=== PATIENT | female | born 1965 | race Caucasian/White ===

== ENCOUNTER 2016-08-31 08:05 | Day surgery (SDC) | payer BC ==
[~2016-08-31 08:05] MED LIST: ACETAMINOPHEN 1000MG/100 ML PREMIX IV ONE; FAMOTIDINE 20MG TABLET PO ONE; MECLIZINE 25 MG TABLET PO ONE; METOCLOPRAMIDE 10 MG TABLET PO ONE
[2016-08-31 08:58] LABS: ANION GAP 11.8 (7-16); BLOOD UREA NITROGEN 16 mg/dL (7-17); CARBON DIOXIDE 25.2 mmol/L (22-30); CREATININE 0.7 mg/dL (0.52-1.04); EST GLOMERULAR FILTRATION RATE > 60 ml/min; GLUCOSE,RANDOM 122 mg/dL (70-110)
[2016-08-31] MEDS ORDERED: MIDAZOLAM HCL 2MG/2ML VIAL IV ONE (12:58)
[2016-08-31] MEDS ORDERED: PROPOFOL 10 MG/ML VIAL IV ONE (12:58)
[2016-08-31] MEDS ORDERED: GLYCOPYRROLATE 0.2 MG/ML ML IV ONE (12:58)
[2016-08-31] MEDS ORDERED: ROCURONIUM BROMIDE 50MG/5ML VIAL IV ONE (12:58)
[2016-08-31] MEDS ORDERED: NEOSTIGMINE 1 MG/1 ML,10ML VIAL IV ONE (12:58)
[2016-08-31] MEDS ORDERED: ONDANSETRON HCL IV 4 MG/2 ML VIAL IVP ONE (12:58)
[2016-08-31] MEDS ORDERED: SUCCINYLCHOLINE 20 MG/ML 10ML IVP ONE (12:58)
[2016-08-31] MEDS ORDERED: DEXAMETHASONE 4 MG/ML 1ML VIAL IVP ONE (12:58)
[2016-08-31] MEDS ORDERED: FENTANYL PF 100MCG/2ML VIAL IV ONE (12:58)
[2016-08-31] MEDS ORDERED: DESFLURANE 240 ML BTL INH ONE (12:58)
[2016-08-31] MEDS ORDERED: LIDOCAINE 2% MDV (20MG/ML) 20ML VIAL IV ONE (12:58)
[2016-08-31] MEDS ORDERED: HYDROMORPHONE HCL 2 MG/ML VIAL IV ONE (15:11)
[2016-08-31] MEDS ORDERED: HYDROCODONE/APAP 5/325MG TABLET PO ONE (15:11)
[2016-08-31] MEDS ORDERED: BUPIVACAINE 0.25% W/EPI MPF 30ML VIAL IVP ONE (15:11)
--- NOTE | 2016-09-02 09:50 | Operative Note ---
DATE OF SURGERY: 08/31/2016 REFERRING: Teresa Munoz NP. PREOPERATIVE DIAGNOSIS: Cholelithiasis and chronic cholecystitis. POSTOPERATIVE DIAGNOSIS: Cholelithiasis and chronic cholecystitis. OPERATION: Lap cholecystectomy. Surgeon: Gus Taylor D.O. Indication: The patient is a 50-year-old female with ongoing right subcostal postprandial pain. Imaging studies did reveal cholelithiasis without evidence of acute cholecystitis. We did discuss cholecystectomy versus medical management. She desired surgical intervention. The risk includes bleeding, infection, duct injury, possible conversion to open, postoperative bile leak and she understood this fully. PROCEDURE: Therefore, after consent was signed and questions were answered she was taken to the Operating Room and placed in the supine position. General anesthesia was administered per Department of Anesthesia. The patient's abdomen was prepped and draped in the usual sterile fashion. Through her prior laparotomy, we did have to go in a supraumbilical position. This area was anesthetized with a total of 3 mL of 0.25% Sensorcaine with epinephrine. A 2 cm incision was made. This was carried down to the anterior rectus fascia. This was incised. Corry clamps were placed on the fascial edges and brought up into the wound. Stay sutures of 0 Vicryl placed. What we did incise was actually an incisional hernia from a prior port site. Clean circumferential fascial edges were obtained. We did lift up the stay sutures and then incised a hernia sac. This was then passed off the field. Through the hernia site, a 10 mm Riky port was placed and adequate pneumoperitoneum was established. Under direct visualization, an additional 5 mm epigastric and two 5 mm right subcostal ports were placed. The patient had dense omental adhesions all along the gallbladder. The patient also had diffuse fatty infiltration of the liver. The gallbladder was retracted in a cephalad and lateral direction where visualization was still somewhat limited. We did increase her reverse Trendelenburg but still could not see the triangle of Calot clearly. Therefore I did have to place a fifth port to hold on the transverse colon and this did optimize our visualization. The hepatocystic triangle was thoroughly dissected out. I did switch to a dome-down technique where the gallbladder was taken off in a retrograde fashion. This did our inferior dissection and looking left structural-tolbert where the cystic duct and cystic artery appeared. Each one was doubly clipped in a standard fashion. The gallbladder was then placed in an EndoCatch bag and brought out through the hernia site. The right upper quadrant was rechecked and was found to be hemostatic. No bleeding, no bile leaking, no bowel injury noted. Pneumoperitoneum was released. The hernia was repaired with #1 Vicryl in an interrupted fashion. All skin incisions were closed with 4-0 Vicryl. She was taken to the Recovery Room in satisfactory condition. FINDINGS AT TIME OF SURGERY: 1. Chronic cholecystitis. 2. Incarcerated incisional hernia. Gus Taylor DO CC: Teresa Munoz NP [email or web address]
== END 2016-08-31 13:15 | disposition home or self-care (01) ==
LOC: SUR 08:05
PROVIDERS: ATTEND Surgery
DX: K80.10 Calculus of gallbladder with chronic cholecystitis without obstruction (principal); K42.9 Umbilical hernia without obstruction or gangrene; I10 Essential (primary) hypertension; J44.9 Chronic obstructive pulmonary disease, unspecified
CPT/HCPCS: 47562; 49653; 00790; 80048; J2405; J3010; J1170; J0330; J2710

== ENCOUNTER 2017-08-08 17:26 | Emergency (ER) | payer BC ==
--- NOTE | 2017-08-08 17:48 | Emergency Department Record ---
History of Present Illness - General Chief Complaint: Cough Stated Complaint: JERRI/COPD/ASTHEMA Time Seen by Provider: 08/08/17 17:40 Source: Patient Mode of Arrival: Ambulatory Limitations: No limitations - History of Present Illness Initial Comments: The patient is here due to a cough, congestion, nasal drainage and mild sputum production for 3 days. She denies any Cp, SOB, or fever. The patient states she has a hx of COPD and gets ill fast and usually gets Cipro for this with a codeine cough medicine. MD Complaint: Cough, Nasal congestion, Rhinorrhea Onset/Timin -: Days(s) Consistency: Getting worse - Related Data Home Medications Medication Instructions Recorded Confirmed Last Taken Multivitamin [Multi-Vitamin Daily] 1 each PO DAILY 08/08/17 08/08/17 08/08/17 Previous Rx's Medication Instructions Recorded Benzonatate [Tessalon Perle] 100 mg PO TID #15 capsule 08/08/17 Ciprofloxacin HCl [Cipro] 500 mg PO Q12HR #14 tablet 08/08/17 Allergies Allergy/AdvReac Type Severity Reaction Status Date / Time dextromethorphan HBr Allergy Severe SWELLING Verified 08/08/17 17:31 [From NyQuil] OF THE FACE diphenhydramine HCl Allergy Severe ANAPHYLAXIS Verified 08/08/17 17:31 [From Tylenol PM] doxycycline Allergy Severe DIFFICULTY Verified 08/08/17 17:31 BREATHING doxylamine succinate Allergy Severe SWELLING Verified 08/08/17 17:31 [From NyQuil] OF THE FACE pseudoephedrine HCl Allergy Severe SWELLING Verified 08/08/17 17:31 [From DayQuil Sinus OF THE FACE Pressure/Pain] amoxicillin Allergy Intermediate RASH Verified 08/08/17 17:31 prednisone Allergy Intermediate ITCHING Verified 08/08/17 17:31 trimethoprim [From Bactrim] Allergy Intermediate "worse Verified 08/08/17 17:31 infection-doesn't help" cephalexin monohydrate Allergy Mild ITCHING Verified 08/08/17 17:31 [From Keflex] lisinopril Allergy ITCHING Verified 08/08/17 17:31 apple AdvReac Severe SWELLING Unverified 07/27/17 08:56 (GENERAL) vinegar AdvReac Severe SWELLING Uncoded 08/24/16 15:57 (GENERAL) Travel Screening - Travel/Exposure Within Last 30 Days Have you traveled within the last 30 days?: No - Travel/Exposure Within Last Year Have you traveled outside the [place] in the last year?: No - Additonal Travel Details Have you been exposed to anyone with a communicable illness?: No - Travel Symptoms Symptom Screening: None Review of Systems Constitutional: Reports: Malaise. Denies: Chills, Fever Eyes: Denies: Eye discharge ENT: Reports: Congestion Respiratory: Reports: Cough. Denies: Dyspnea Past Medical History - SOCIAL HISTORY Smoking Status: Never smoker Alcohol Use: Occasional Drug Use: None - RESPIRATORY Hx Respiratory Disorders: Yes Hx Asthma: Yes Hx Bronchitis: Yes (04/2016) Hx COPD: Yes - CARDIOVASCULAR Hx Cardio Disorders: Yes Hx Hypertension: Yes (med good control) - NEURO Hx Neuro Disorders: No - GI Hx GI Disorders: Yes Hx Abdominal Pain: Yes (rt abd mainly) Hx Reflux: Yes (heartburn & reflux) Hx Nausea/Vomiting: Yes (no vomiting) - Hx Genitourinary Disorders: No Comment:: hysterectomy - ENDOCRINE Hx Endocrine Disorders: No - MUSCULOSKELETAL Hx Musculoskeletal Disorders: No - PSYCH Hx Psych Problems: No - HEMATOLOGY/ONCOLOGY Hx Hematology/Oncology Disorders: Yes Hx Anemia: Yes (before hysterectomy) Hx Blood Transfusions: Yes (1986) Hx Blood Transfusion Reaction: No Family Medical History Any Significant Family History?: Yes Hx Diabetes: Mother *Diabetes Comment: non insulin Hx Heart Disease: Father Hx HTN: Father Hx Stroke: Father Physical Exam - General General Appearance: Alert, Oriented x3, Cooperative, No acute distress - Head Head exam: Atraumatic, Normocephalic, Normal inspection - Eye Eye exam: Normal appearance, PERRL - ENT ENT exam: Normal exam, Mucous membranes moist, Normal external ear exam, Normal orophraynx, TM's normal bilaterally Throat exam: Normal inspection. negative: Tonsillar erythema, Tonsillar exudate - Neck Neck exam: Normal inspection, Full ROM. negative: Lymphadenopathy, Meningismus , Tenderness - Respiratory Respiratory exam: Normal lung sounds bilaterally. negative: Respiratory distress - Cardiovascular Cardiovascular Exam: Regular rate, Normal rhythm, Normal heart sounds - GI/Abdominal GI/Abdominal exam: Soft, Normal bowel sounds. negative: Tenderness - Extremities Extremities exam: Normal inspection, Full ROM, Normal capillary refill. negative: Tenderness - Neurological Neurological exam: Alert. negative: Motor sensory deficit Course Vital Signs 08/08/17 17:33 Temperature 98.3 F Pulse Rate 97 H Respiratory 20 Rate Blood Pressure 132/85 Pulse Ox 97 - Reevaluation(s) Reevaluation #1: I did discuss the issues with the patient. I did explain to her that Cipro is really not indicated for respiratory infections but since the patient states she is unable to take anything else I will reluctantly prescribe her it. I also did tell her that I do not prescribe cough medicine with codeine so we will try the patient on Tessalon. She is to see her PCP later this week if not better. 08/08/17 17:49 Disposition Disposition: Discharge Clinical Impression: Upper respiratory infection Qualifiers: URI type: unspecified URI Qualified Code(s): J06.9 - Acute upper respiratory infection, unspecified Disposition: Home, Self-Care Condition: (2) Stable Instructions: Cold Symptoms (ED) Additional Instructions: Please take the medicines as directed. Please see your family doctor in 3-5 days if not better. Return to the ER for any worsening symptoms. Prescriptions: Ciprofloxacin HCl [Cipro] 500 mg PO Q12HR #14 tablet Benzonatate [Tessalon Perle] 100 mg PO TID #15 capsule Forms: Patient Portal Access Time of Disposition: 17:52 Quality - Quality Measures Quality Measures: N/A - Blood Pressure Screening View Details: Yes Does Patient Have Any of the Following: No Blood Pressure Classification: Pre-Hypertensive BP Reading Systolic Measurement: 132 Diastolic Measurement: 85 Screening for High Blood Pressure: < Pre-Hypertensive BP, F/U Documented > [ G8950] Pre-Hypertensive Follow-up Interventions: Referral to alternative/primary care provider.
== END 2017-08-08 18:00 | disposition home or self-care (01) ==
LOC: ER 17:26
DX: J06.9 Acute upper respiratory infection, unspecified (principal); R05 Cough; I10 Essential (primary) hypertension
CPT/HCPCS: 99282

== ENCOUNTER 2018-03-11 22:56 | Emergency (ER) | payer BC ==
[2018-03-11] MEDS ORDERED: Diph,Pert(Acell),Tet Vac 0.5 ML SYR IM ONE (23:08)
[2018-03-11] MEDS ORDERED: ACETAMINOPHEN 325 MG TAB PO ONE (23:08)
--- NOTE | 2018-03-11 23:12 | Emergency Department Record ---
History of Present Illness - General Chief Complaint: Ankle/Foot Injury Stated Complaint: RT FOOT INJURY Time Seen by Provider: 03/11/18 23:06 Source: Patient Mode of Arrival: Ambulatory Limitations: No limitations - History of Present Illness Initial Comments: The patient is here due to accidentally dropping a tire iron on her R foot. She did sustain a very small PW to the dorsal foot over the mid 4th MT bone with tenderness. Complaint: Foot injury Onset/Timin -: Minutes(s) Type of Injury: Puncture wound Severity scale (1-10): 7 Treatments Prior to Arrival: Bandage - Related Data Previous Rx's Medication Instructions Recorded Ciprofloxacin HCl [Cipro] 500 mg PO Q12HR #10 tablet 03/11/18 Allergies Allergy/AdvReac Type Severity Reaction Status Date / Time dextromethorphan HBr Allergy Severe SWELLING Verified 03/11/18 23:01 [From NyQuil] OF THE FACE diphenhydramine HCl Allergy Severe ANAPHYLAXIS Verified 03/11/18 23:01 [From Tylenol PM] doxycycline Allergy Severe DIFFICULTY Verified 03/11/18 23:01 BREATHING doxylamine succinate Allergy Severe SWELLING Verified 03/11/18 23:01 [From NyQuil] OF THE FACE pseudoephedrine HCl Allergy Severe SWELLING Verified 03/11/18 23:01 [From DayQuil Sinus OF THE FACE Pressure/Pain] amoxicillin Allergy Intermediate RASH Verified 03/11/18 23:01 prednisone Allergy Intermediate ITCHING Verified 03/11/18 23:01 trimethoprim [From Bactrim] Allergy Intermediate "worse Verified 03/11/18 23:01 infection-doesn't help" cephalexin monohydrate Allergy Mild ITCHING Verified 03/11/18 23:01 [From Keflex] lisinopril Allergy ITCHING Verified 03/11/18 23:01 apple AdvReac Severe SWELLING Verified 03/11/18 23:01 (GENERAL) clindamycin AdvReac NAUSEA Verified 03/11/18 23:24 vinegar AdvReac Severe SWELLING Uncoded 08/24/16 15:57 (GENERAL) Travel Screening - Travel/Exposure Within Last 30 Days Have you traveled within the last 30 days?: No - Travel Symptoms Symptom Screening: None Review of Systems Constitutional: Denies: Chills, Fever Past Medical History - SOCIAL HISTORY Smoking Status: Never smoker - RESPIRATORY Hx Respiratory Disorders: Yes Hx Asthma: Yes Hx Bronchitis: Yes (04/2016) Hx COPD: Yes - CARDIOVASCULAR Hx Cardio Disorders: Yes Hx Hypertension: Yes (med good control) Comment:: high cholesterol - NEURO Hx Neuro Disorders: No - GI Hx GI Disorders: Yes Hx Abdominal Pain: Yes (rt abd mainly) Hx Reflux: Yes (heartburn & reflux) Hx Nausea/Vomiting: Yes (no vomiting) - Hx Genitourinary Disorders: No Comment:: hysterectomy - ENDOCRINE Hx Endocrine Disorders: Yes Hx Diabetes: Yes - MUSCULOSKELETAL Hx Musculoskeletal Disorders: No - PSYCH Hx Psych Problems: No - HEMATOLOGY/ONCOLOGY Hx Hematology/Oncology Disorders: Yes Hx Anemia: Yes (before hysterectomy) Hx Blood Transfusions: Yes (1986) Hx Blood Transfusion Reaction: No Family Medical History Any Significant Family History?: Yes Hx Diabetes: Mother *Diabetes Comment: non insulin Hx Heart Disease: Father Hx HTN: Father Hx Stroke: Father Physical Exam - General General Appearance: Alert, Cooperative, No acute distress - Head Head exam: Atraumatic, Normocephalic - Eye Eye exam: Normal appearance - Extremities Extremities exam: Full ROM, Tenderness (There is tenderness at the site of the trauma.). negative: Normal inspection (There is a very small PW to the dorsal foot over the mid 4th MT bone at the site of the trauma. ) Image of Feet: 1 - Area of trauma, a superficial PW and tenderness. Course Vital Signs 03/11/18 23:02 Temperature 97.7 F Pulse Rate [ 83 Pulse Ox Probe] Respiratory 20 Rate Blood Pressure 148/78 [Left Arm] Pulse Ox 97 - Reevaluation(s) Reevaluation #1: The patient is doing very well. I did explain the xray does not demonstrate any fx. She is to keep the PW clean and dressed with abx ointment and a bandaid. She also is to take Cipro as directed. 03/11/18 23:41 Medical Decision Making - Data Complexity MDM Data: X-Ray Ordered and/or Reviewed - Radiology Data Radiology results: Report reviewed (R foot: Neg for fx.) Disposition Disposition: Discharge Clinical Impression: Contusion of foot Qualifiers: Encounter type: initial encounter Laterality: right Qualified Code(s): S90.31XA - Contusion of right foot, initial encounter Disposition: Home, Self-Care Condition: (2) Stable Instructions: Foot Contusion (ED) Additional Instructions: Please keep the wound clean and wash daily and dress with antibiotic ointment and a bandaid. Wear the hard soled shoe for 7 days and use Tylenol or Motrin for pain. Please take the Cipro as directed and see your family doctor if not better in 3 days. Return to the ER for any worsening symptoms. Prescriptions: Ciprofloxacin HCl [Cipro] 500 mg PO Q12HR #10 tablet Forms: Patient Portal Access Time of Disposition: 23:44 Quality - Quality Measures Quality Measures: N/A - Blood Pressure Screening View Details: Yes Does Patient Have Any of the Following: No Blood Pressure Classification: Pre-Hypertensive BP Reading Systolic Measurement: 121 Diastolic Measurement: 70 Screening for High Blood Pressure: < Pre-Hypertensive BP, F/U Documented > [ G8950] Pre-Hypertensive Follow-up Interventions: Referral to alternative/primary care provider.
--- NOTE | 2018-03-14 13:28 | RADIOLOGY REPORT ---
EXAM: RIGHT FOOT, THREE VIEWS HISTORY: DROPPED A HEAVY OBJECT ON THE MID FOOT. TECHNIQUE: Three views of the right foot were obtained. Comparison: None. Encounter: Initial. FINDINGS: Three views of the right foot shows soft tissue swelling on the dorsum of the foot in the region of the mid metatarsals. No fractures are identified. There is a small dorsal spur of the navicular bone. Small plantar calcaneal heel spur. IMPRESSION: SOFT TISSUE SWELLING IS NOTED ON THE DORSUM OF THE MID FOOT. NO ACUTE BONE ABNORMALITIES. JOB NUMBER: [id number] MTDD
== END 2018-03-11 23:57 | disposition home or self-care (01) ==
LOC: ER 22:56
DX: S90.31XA Contusion of right foot, initial encounter (principal); S91.331A Puncture wound without foreign body, right foot, initial encounter; W22.8XXA Striking against or struck by other objects, initial encounter; E11.9 Type 2 diabetes mellitus without complications; I10 Essential (primary) hypertension
CPT/HCPCS: 90715; 96372; 99283

== ENCOUNTER 2018-09-18 14:37 | Emergency (ER) | payer BC ==
[2018-09-18] MEDS ORDERED: LORAZEPAM 2 MG/ML VIAL IV ONE (15:04)
[2018-09-18] MEDS ORDERED: 0.9 % SODIUM CHLORIDE 1,000 ML BAG IV ONE (15:04)
--- NOTE | 2018-09-18 15:10 | Emergency Department Record ---
History of Present Illness - General Chief complaint: ENT Stated complaint: JERRI,LT EAR PLUGGED Time Seen by Provider: 09/18/18 15:04 Source: Patient Mode of Arrival: Ambulatory Limitations: No limitations - History of Present Illness Initial comments: 52 yo female presents with cough and congestion with a feeling of plugged ear on the left with drainage today on the left. She has had sore throat as well. No nausea, vomiting or diarrhea. She coughed up brownish sputum that started on the the symptoms. MD complaint: Ear pain, Sore throat, Other (congestion, cough) Onset/Timin -: Days(s) Location: L ear, Nose, Throat Severity: Moderate Quality: Aching Consistency: Constant Improves with: None Worsens with: None Associated Symptoms: Cough, Sore throat - Related Data Home Medications Medication Instructions Recorded Confirmed Last Taken Atorvastatin Calcium 20 mg PO DAILY 09/18/18 09/18/18 Unknown Allergies Allergy/AdvReac Type Severity Reaction Status Date / Time dextromethorphan HBr Allergy Severe SWELLING Verified 09/18/18 15:08 [From NyQuil] OF THE FACE diphenhydramine HCl Allergy Severe ANAPHYLAXIS Verified 09/18/18 15:08 [From Tylenol PM] doxycycline Allergy Severe DIFFICULTY Verified 09/18/18 15:08 BREATHING doxylamine succinate Allergy Severe SWELLING Verified 09/18/18 15:08 [From NyQuil] OF THE FACE pseudoephedrine HCl Allergy Severe SWELLING Verified 09/18/18 15:08 [From DayQuil Sinus OF THE FACE Pressure/Pain] amoxicillin Allergy Intermediate RASH Verified 09/18/18 15:08 azithromycin [From Zithromax] Allergy Intermediate hives Verified 09/18/18 15:08 prednisone Allergy Intermediate ITCHING Verified 09/18/18 15:08 trimethoprim [From Bactrim] Allergy Intermediate "worse Verified 09/18/18 15:08 infection-doesn't help" cephalexin monohydrate Allergy Mild ITCHING Verified 09/18/18 15:08 [From Keflex] lisinopril Allergy ITCHING Verified 09/18/18 15:08 sulfamethoxazole Allergy HIVES Verified 09/18/18 15:10 [From Bactrim] apple AdvReac Severe SWELLING Verified 09/18/18 15:08 (GENERAL) levofloxacin [From Levaquin] AdvReac Severe VOMITING Verified 09/18/18 15:09 clindamycin AdvReac NAUSEA Verified 09/18/18 15:08 vinegar AdvReac Severe SWELLING Uncoded 08/24/16 15:57 (GENERAL) Travel Screening - Travel/Exposure Within Last 30 Days Have you traveled within the last 30 days?: No Review of Systems Constitutional: Denies: Chills, Fever, Malaise Eyes: Denies: Eye discharge, Eye pain, Photophobia, Vision change ENT: Reports: Congestion, Ear pain (drainage), Throat pain Respiratory: Reports: Cough. Denies: Dyspnea Cardiovascular: Denies: Chest pain, Palpitations, Syncope Endocrine: Reports: Fatigue Gastrointestinal: Denies: Abdominal pain, Diarrhea, Nausea, Vomiting Genitourinary: Denies: Dysuria, Urgency Musculoskeletal: Denies: Arthralgia, Back pain, Joint swelling, Myalgia Skin: Denies: Bruising, Change in color, Rash Neurological: Denies: Headache Psychiatric: Denies: Anxiety Hematological/Lymphatic: Denies: Easy bleeding, Easy bruising Past Medical History - SOCIAL HISTORY Smoking Status: Never smoker - RESPIRATORY Hx Respiratory Disorders: Yes Hx Asthma: Yes Hx Bronchitis: Yes (04/2016) Hx COPD: Yes - CARDIOVASCULAR Hx Cardio Disorders: Yes Hx Hypertension: Yes (med good control) Comment:: high cholesterol - NEURO Hx Neuro Disorders: No - GI Hx GI Disorders: Yes Hx Abdominal Pain: Yes (rt abd mainly) Hx Reflux: Yes (heartburn & reflux) Hx Nausea/Vomiting: Yes (no vomiting) - Hx Genitourinary Disorders: No Comment:: hysterectomy - ENDOCRINE Hx Endocrine Disorders: Yes Hx Diabetes: Yes - MUSCULOSKELETAL Hx Musculoskeletal Disorders: No - PSYCH Hx Psych Problems: No - HEMATOLOGY/ONCOLOGY Hx Hematology/Oncology Disorders: Yes Hx Anemia: Yes (before hysterectomy) Hx Blood Transfusions: Yes (1986) Hx Blood Transfusion Reaction: No Family Medical History Hx Diabetes: Mother *Diabetes Comment: non insulin Hx Heart Disease: Father Hx HTN: Father Hx Stroke: Father Physical Exam - General General Appearance: Alert, Oriented x3, Cooperative, No acute distress Limitations: No limitations - Head Head exam: Atraumatic, Normal inspection - Eye Eye exam: Normal appearance, PERRL. negative: Conjunctival injection, Scleral icterus - ENT ENT exam: Normal exam, Mucous membranes moist, Normal orophraynx, TM's normal bilaterally Ear exam: External canal tenderness, Other (Canal tenderness and erythema with slight drainage). negative: Normal external inspection Nasal Exam: Normal inspection Mouth exam: Normal external inspection Teeth exam: Normal inspection Throat exam: Normal inspection. negative: Tonsillar erythema, Tonsillomegaly, Tonsillar exudate, R peritonsillar mass - Neck Neck exam: Normal inspection, Full ROM. negative: Lymphadenopathy, Tenderness - Respiratory Respiratory exam: Normal lung sounds bilaterally. negative: Accessory muscle use, Decreased breath sounds, Respiratory distress, Rhonchi, Stridor, Wheezes - Cardiovascular Cardiovascular Exam: Regular rate, Normal rhythm, Normal heart sounds - GI/Abdominal GI/Abdominal exam: Soft. negative: Tenderness - Rectal Rectal exam: Deferred - exam: Deferred - Extremities Extremities exam: Normal inspection. negative: Pedal edema - Back Back exam: Denies: CVA tenderness (R), CVA tenderness (L) - Neurological Neurological exam: Alert, Oriented X3 - Psychiatric Psychiatric exam: Manic, Normal affect, Normal mood. negative: Agitated, Anxious - Skin Skin exam: Dry, Intact, Normal color, Warm Course Vital Signs 09/18/18 15:04 Temperature 98.1 F Pulse Rate 77 Respiratory 20 Rate Blood Pressure 122/76 Pulse Ox 97 Disposition Disposition: Discharge Clinical Impression: Otitis externa Disposition: Home, Self-Care Condition: (1) Good Instructions: Otitis Externa (ED) Additional Instructions: Call your doctor for the next available follow up appointment Return to the ER for a recheck if worse, any new concerns or questions Take the prescriptions provided as directed Apply 3-4 drops every 8 hours Review this ER visit and the tests performed with your family doctor Forms: Patient Portal Access Time of Disposition: 15:22 Quality - Quality Measures Quality Measures: N/A - Blood Pressure Screening Does Patient Have Any of the Following: Active Dx of HTN Blood Pressure Classification: Pre-Hypertensive BP Reading Systolic Measurement: 122 Diastolic Measurement: 76 Screening for High Blood Pressure: Patient Exclusion, Hx of HTN [G9744]
[2018-09-18] MEDS ORDERED: CIPROFLOXACIN HCL/DEXAMETHASONE OTIC SUSP OT ONE (15:19)
== END 2018-09-18 15:55 | disposition home or self-care (01) ==
LOC: ER 14:37
DX: H60.92 Unspecified otitis externa, left ear (principal); R05 Cough; R06.00 Dyspnea, unspecified; I10 Essential (primary) hypertension
CPT/HCPCS: 99282

== ENCOUNTER 2019-07-01 16:38 | Observation (INO) | payer BC ==
[2019-07-01] MEDS ORDERED: 0.9 % SODIUM CHLORIDE 1,000 ML BAG IV ONE (16:50)
[2019-07-01] MEDS ORDERED: ONDANSETRON HCL IV 4 MG/2 ML VIAL IV ONE (16:50)
[2019-07-01] MEDS ORDERED: ACETAMINOPHEN 325 MG TAB PO ONE (16:54)
--- NOTE | 2019-07-01 16:54 | Emergency Department Record ---
History of Present Illness - General Chief Complaint: Shortness of breath Stated Complaint: JERRI,HIGH BLOOD SUGAR,VOMITTING Time Seen by Provider: 07/01/19 16:45 Source: Patient Mode of Arrival: Ambulatory Limitations: No limitations - History of Present Illness Initial Comments: The patient is here due to a one day hx of cough, congestion, fever, body aches and a single episode of vomiting today. She did not get a flu shot this year. The patient does have a hx of diabetes and her blood sugars have been running around 110. She also has been having some upper abdominal pain today with the vomiting. The patient used to drink alcohol but has not for the last 3 months. She has been taking [place] for pain and takes 1-2 per day. MD Complaint: Cough, Shortness of breath Onset/Timin -: Days(s) Severity scale (1-10): 7 Quality: Aching Consistency: Constant Improves With: Nothing Worsens With: Nothing Known History Of: Other Associated Symptoms: Cough, Other Treatments Prior to Arrival: None - Related Data Allergies Allergy/AdvReac Type Severity Reaction Status Date / Time dextromethorphan HBr Allergy Severe SWELLING Unverified 01/12/19 10:03 [From NyQuil] OF THE FACE diphenhydramine HCl Allergy Severe ANAPHYLAXIS Unverified 01/12/19 10:03 [From Tylenol PM] doxycycline Allergy Severe DIFFICULTY Unverified 01/12/19 10:03 BREATHING doxylamine succinate Allergy Severe SWELLING Unverified 01/12/19 10:03 [From NyQuil] OF THE FACE pseudoephedrine HCl Allergy Severe SWELLING Unverified 01/12/19 10:03 [From DayQuil Sinus OF THE FACE Pressure/Pain] amoxicillin Allergy Intermediate RASH Unverified 01/12/19 10:03 azithromycin [From Zithromax] Allergy Intermediate hives Unverified 01/12/19 10:03 prednisone Allergy Intermediate ITCHING Unverified 01/12/19 10:03 trimethoprim [From Bactrim] Allergy Intermediate "worse Unverified 01/12/19 10:03 infection-doesn't help" cephalexin monohydrate Allergy Mild ITCHING Unverified 01/12/19 10:03 [From Keflex] lisinopril Allergy ITCHING Unverified 01/12/19 10:03 sulfamethoxazole Allergy HIVES Unverified 01/12/19 10:03 [From Bactrim] apple AdvReac Severe SWELLING Unverified 01/12/19 10:03 (GENERAL) levofloxacin [From Levaquin] AdvReac Severe VOMITING Unverified 01/12/19 10:03 diclofenac sodium AdvReac Intermediate leg Unverified 02/14/19 09:44 [From Voltaren] numbness lidocaine AdvReac Intermediate needle Unverified 01/12/19 10:27 sensation, hot flashes, mood swings clindamycin AdvReac NAUSEA Unverified 01/12/19 10:03 vinegar AdvReac Severe SWELLING Uncoded 08/24/16 15:57 (GENERAL) Travel Screening - Travel/Exposure Within Last 30 Days Have you traveled within the last 30 days?: No Review of Systems Constitutional: Reports: Chills, Fever, Malaise Eyes: Denies: Eye discharge ENT: Reports: Congestion Respiratory: Reports: Cough. Denies: Dyspnea Cardiovascular: Denies: Arrhythmia, Chest pain Endocrine: Reports: Fatigue Gastrointestinal: Reports: Nausea, Vomiting. Denies: Diarrhea Genitourinary: Denies: Dysuria Musculoskeletal: Denies: Arthralgia Skin: Denies: Bruising Past Medical History - SOCIAL HISTORY Smoking Status: Never smoker Alcohol Use: None - RESPIRATORY Hx Respiratory Disorders: Yes Hx Asthma: Yes Hx Bronchitis: Yes (04/2016) Hx COPD: Yes - CARDIOVASCULAR Hx Cardio Disorders: Yes Hx Hypertension: Yes (med good control) Comment:: high cholesterol - NEURO Hx Neuro Disorders: No - GI Hx GI Disorders: Yes Hx Abdominal Pain: Yes (rt abd mainly) Hx Reflux: Yes (heartburn & reflux) Hx Nausea/Vomiting: Yes (no vomiting) - Hx Genitourinary Disorders: No Comment:: hysterectomy - ENDOCRINE Hx Endocrine Disorders: Yes Hx Diabetes: Yes - MUSCULOSKELETAL Hx Musculoskeletal Disorders: No - PSYCH Hx Psych Problems: No - HEMATOLOGY/ONCOLOGY Hx Hematology/Oncology Disorders: Yes Hx Anemia: Yes (before hysterectomy) Hx Blood Transfusions: Yes (1986) Hx Blood Transfusion Reaction: No Family Medical History Any Significant Family History?: Yes Hx Diabetes: Mother *Diabetes Comment: non insulin Hx Heart Disease: Father Hx HTN: Father Hx Stroke: Father Physical Exam - General General Appearance: Alert, Oriented x3, Cooperative, No acute distress - Head Head exam: Atraumatic, Normocephalic, Normal inspection - Eye Eye exam: Normal appearance, PERRL, EOMI - ENT Throat exam: Normal inspection. negative: Tonsillar erythema, Tonsillar exudate - Neck Neck exam: Normal inspection, Full ROM. negative: Tenderness - Respiratory Respiratory exam: Normal lung sounds bilaterally. negative: Respiratory distress - Cardiovascular Cardiovascular Exam: Regular rate, Normal rhythm, Normal heart sounds - GI/Abdominal GI/Abdominal exam: Soft, Normal bowel sounds. negative: Tenderness - Extremities Extremities exam: Normal inspection, Full ROM, Normal capillary refill. negative: Tenderness - Neurological Neurological exam: Alert, Normal gait. negative: Abnormal gait, Motor sensory deficit - Psychiatric Psychiatric exam: negative: Anxious Course Vital Signs 07/01/19 16:43 Temperature 102.9 F H Pulse Rate 110 H Respiratory 20 Rate Blood Pressure 141/82 Pulse Ox 95 - Reevaluation(s) Reevaluation #1: The patient is doing better at this time and has no nausea or vomiting. On exam her abdomen is very soft and non-tender. Her Influenza did return positive and her CXR does appear normal to me. The patient's temp also is improved with the Tylenol and Motrin. I did discuss the elevated liver enzymes and am not sure why that is. Due to the level of elevation I did recommend inpatient treatment and the patient did agree. I then did consult with Dr. Houser (GI) who did think it would be OK to admit the patient here for repeat lab work and hydration. I also did consult with Dr. Merino and he does agree with the plan to admit. 07/01/19 19:00 Medical Decision Making - Data Complexity MDM Data: Labs Ordered and/or Reviewed, X-Ray Ordered and/or Reviewed - Lab Data Result diagrams: 07/02/19 06:35 07/02/19 06:35 - Radiology Data Radiology results: Report reviewed (CXR: Possible L retrocardiac infiltrate but most likely confluence of shadows.), Image reviewed (CXR: NEg.) Disposition Disposition: Admit Clinical Impression: Influenza Disposition: Still a Patient at [facility] Decision to Admit: Admit from ER Decision to Admit Date: 07/01/19 Decision to Admit Time: 19:03 Accepting Physician: Angelique Time Discussed w/Accepting Physician: 19:03 Condition: (2) Stable Time of Disposition: 19:03 Quality - Quality Measures Quality Measures: N/A - Blood Pressure Screening View Details: Yes Does Patient Have Any of the Following: No Blood Pressure Classification: Pre-Hypertensive BP Reading Systolic Measurement: 141 Diastolic Measurement: 82 Screening for High Blood Pressure: < Pre-Hypertensive BP, F/U Documented > [[id number]] Pre-Hypertensive Follow-up Interventions: Referral to alternative/primary care provider.
[2019-07-01 17:06] LABS: ABSOLUTE NEUTROPHIL COUNT 5.96; BASO % 0.3 % (0-6); EOS % 0.1 % (0-6); HEMOGLOBIN 12.8 gm/dl (11.6-16.0); LYMPH % 6.6 % (16-45); MEAN CELL VOLUME 88.1 fl (81-97); MEAN CORPUSCULAR HEMOGLOBIN 28.2 pg (27-33); MEAN PLATELET VOLUME 10.3 fl (7.4-10.4); MONO % 6.3 % (0-9); PLATELET COUNT 228 K/uL (130-400); RED BLOOD COUNT 4.54 M/uL (3.80-5.40); RED CELL DISTRIBUTION WIDTH 13.4 % (11.5-14.5); WHITE BLOOD COUNT W/O DIFF 6.9 K/uL (4.2-12.2)
[2019-07-01 17:18] LABS: BLOOD UREA NITROGEN 14 mg/dL (6-20); CREATININE 0.7 mg/dL (0.5-0.9); EST GLOMERULAR FILTRATION RATE > 60 mL/min
[2019-07-01 17:19] LABS: TOTAL PROTEIN 7.7 g/dL (6.6-8.7)
[2019-07-01 17:21] LABS: GLUCOSE,RANDOM 130 mg/dL (74-109)
[2019-07-01 17:24] LABS: ALBUMIN 4.5 g/dL (4.0-5.0); ALKALINE PHOSPHATASE 180 U/L (35-104); BILIRUBIN,DIRECT 0.7 mg/dL (0-0.3); INFLUENZA A POSITIVE (NEGATIVE); INFLUENZA B NEGATIVE (NEGATIVE)
--- NOTE | 2019-07-01 17:24 | RADIOLOGY REPORT ---
EXAMINATION: Two View Chest Radiographs EXAM DATE: 07/01/2019 5:19 PM TECHNIQUE: Frontal and lateral views INDICATION: cough COMPARISON: There is a comparison examination listed dated 08/11/2017 but the associated images are n ot usable. ENCOUNTER: Not applicable FINDINGS: Normal heart size. Suggestion subtle infiltrate at the left base, not definite possible overlap of no rmal structures. IMPRESSION: Possible mild infiltrate left base in the retrocardiac region. Dictated by: Bipin Etienne MD on 07/01/2019 5:19 PM. .
[2019-07-01] MEDS ORDERED: IBUPROFEN 600 MG TABLET PO ONE (17:27)
[2019-07-01] MEDS ORDERED: POTASSIUM CHLORIDE 20 MEQ TABLET PO ONE (17:34)
[2019-07-01 17:37] LABS: ALT/SGPT 1456 U/L (<33); AST/SGOT 2151 U/L (10.0-35.0)
[2019-07-01 17:54] LABS: PARTIAL THROMBOPLASTIN TIME 22.2 SECONDS (24.5-39.1); PROTHROMBIN TIME (PATIENT) 10.2 SECONDS (9.5-12.1)
--- NOTE | 2019-07-01 18:23 | CT SCAN REPORT ---
EXAMINATION: CT Abdomen and Pelvis without IV Contrast EXAM DATE: 07/01/2019 6:09 PM TECHNIQUE: Standard protocol CT imaging of the abdomen and pelvis was performed without intravenous c ontrast. INDICATION: Upper AP with vomiting. COMPARISON: None ENCOUNTER: Not applicable CT ABDOMEN AND PELVIS FINDINGS: Lung Bases: Small focus of atelectasis or infiltrate at the left lung base posteriorly. Hepatobiliary: The liver has a normal size with a smooth surface. Gallbladder is not identified. Pancreas: The pancreas is normal. Spleen: The spleen is not enlarged. Adrenals: The adrenal glands are normal. Kidneys, Ureters, & Bladder: Both kidneys have a normal size and morphology. There is no hydronephro sis. Ureters show normal course and caliber bilaterally and the urinary bladder is unremarkable. Gastrointestinal: High density material posterior dependent within the stomach as well as within the wall of the stomach. Etiology indeterminate. Stomach otherwise unremarkable. Small bowel is not obstr ucted. Appendix is not definitively identified. No significant inflammatory change within the right l ower quadrant The large bowel is within normal limits. Reproductive Organs: Uterus is not identified. Lymphatic System: There is no adenopathy within the abdomen or pelvis. Vasculature: Normal caliber abdominal aorta Peritoneum: No free fluid, free air, or inflammation Abdominal wall & Musculoskeletal: Fat-containing supraumbilical hernia. Small periumbilical fat-conta ining hernia is also present. Assessment of the solid organs, soft tissues, and vascular structures is overall limited on noncontra st imaging, IMPRESSION: Nonobstructed bowel. Appendix is not definitively identified. No inflammatory change right lower quad rant. Gallbladder uterus is not identified High density material posterior dependent within the stomach as well as within the wall of the stomac h. Etiology indeterminate. Additional findings as detailed above Dictated by: Polly Rodrigues MD on 07/01/2019 6:08 PM. .
[2019-07-01] MEDS ORDERED: OSTELTAMIVIR 75 MG CAP PO ONE (18:44)
[2019-07-01] MEDS ORDERED: VERAPAMIL HCL 240 MG TAB ER PO SCH (20:07)
[2019-07-01] MEDS ORDERED: ALBUTEROL HFA 8 GM INHALER INH PRN (20:07)
[2019-07-01] MEDS ORDERED: 0.9 % SODIUM CHLORIDE 1000ML 1,000 ML IV ONE (20:07)
[2019-07-01] MEDS ORDERED: HYDROCHLOROTHIAZIDE 25 MG TABLET PO SCH (20:07)
[2019-07-01] MEDS ORDERED: IBUPROFEN 400 MG TABLET PO PRN (20:07)
[2019-07-01] MEDS ORDERED: BREO (FLUTICASONE/VILANTEROL) 100MCG/25MCG INHALER INH SCH (20:45)
[2019-07-01] MEDS ORDERED: MONTELUKAST SODIUM 10MG TABLET PO SCH (22:00)
[2019-07-02 00:33] LABS: ALBUMIN 3.8 g/dL (4.0-5.0); BILIRUBIN,DIRECT 0.3 mg/dL (0-0.3); BILIRUBIN,TOTAL 0.9 mg/dL (0.2-1.0); TOTAL PROTEIN 6.6 g/dL (6.6-8.7)
[2019-07-02] MEDS: METFORMIN 500 MG TABLET PO SCH ×2 (01:32→01:33)
[2019-07-02] MEDS ORDERED: 0.9 % SODIUM CHLORIDE 1000ML 1,000 ML IV PRN (06:21)
[2019-07-02 06:52] LABS: HEMATOCRIT 39.2 % (35.0-47.0); HEMOGLOBIN 12.3 gm/dl (11.6-16.0); MEAN CELL VOLUME 88.9 fl (81-97); MEAN CORPUSCULAR HEMOGLOBIN 27.9 pg (27-33); MEAN CORPUSCULAR HGB CONC 31.4 g/dl (32-36); MEAN PLATELET VOLUME 10.4 fl (7.4-10.4); PLATELET COUNT 198 K/uL (130-400); RED BLOOD COUNT 4.41 M/uL (3.80-5.40); RED CELL DISTRIBUTION WIDTH 13.6 % (11.5-14.5); WHITE BLOOD COUNT W/O DIFF 4.8 K/uL (4.2-12.2)
[2019-07-02 06:59] LABS: INR 1.1; PROTHROMBIN TIME (PATIENT) 10.9 SECONDS (9.5-12.1)
[2019-07-02 07:06] LABS: ALBUMIN 3.9 g/dL (4.0-5.0); ALKALINE PHOSPHATASE 147 U/L (35-104); AST/SGOT 556 U/L (10.0-35.0); BILIRUBIN,DIRECT 0.3 mg/dL (0-0.3); BLOOD UREA NITROGEN 11 mg/dL (6-20); CREATININE 0.6 mg/dL (0.5-0.9); EST GLOMERULAR FILTRATION RATE > 60 mL/min; GLUCOSE,RANDOM 100 mg/dL (74-109); TOTAL PROTEIN 6.6 g/dL (6.6-8.7)
[2019-07-02 07:15] LABS: PLATELET ESTIMATE NORMAL (NORMAL)
[2019-07-02 07:21] LABS: ALT/SGPT 960 U/L (<33)
[2019-07-02] MEDS ORDERED: METFORMIN 500 MG TABLET PO SCH (08:00)
--- NOTE | 2019-07-02 08:39 | History & Physical ---
History of Present Illness - Date of Service Date of Service for History & Physical: 07/02/19 - History of Present Illness Admitting Diagnosis: 1. Acute Influenza with elevated liver enzymes. History of Present Illness: The patient is here due to a one day hx of cough, congestion, fever, body aches and a single episode of vomiting today. She did not get a flu shot this year. The patient does have a hx of diabetes and her blood sugars have been running around 110. She also has been having some upper abdominal pain today with the vomiting. The patient used to drink alcohol but has not for the last 3 months. She has been taking [place] for pain and takes 1-2 per day. Patient was admitted from the Ed because of her liver enzymes to make sure they don't go up and to determine why they are elevated. No vomiting some right upper quad pain and no guarding and no rebound, No nausea and no extra tylenol besides her two norco's per day. No travel history and no black stools and no bloody stool. She was positive with flu A in the ED. AST 2500 ast 1500 and bilirubin 1.1 and prothrombin time normal Travel Screening - Travel/Exposure Within Last 30 Days Have you traveled within the last 30 days?: No - Travel/Exposure Within Last Year Have you traveled outside the [place] in the last year?: No - Additonal Travel Details Have you been exposed to anyone with a communicable illness?: No Review of Systems Constitutional: Reports: Chills, Fever, Malaise Eyes: Denies: Eye discharge ENT: Reports: Congestion Respiratory: Reports: Cough. Denies: Dyspnea Cardiovascular: Denies: Arrhythmia, Chest pain Endocrine: Reports: Fatigue Gastrointestinal: Reports: Nausea, Vomiting. Denies: Diarrhea Genitourinary: Denies: Dysuria Musculoskeletal: Denies: Arthralgia Skin: Denies: Bruising Past Medical History - SOCIAL HISTORY Smoking Status: Never smoker Alcohol Use: None - RESPIRATORY Hx Respiratory Disorders: Yes Hx Asthma: Yes Hx Bronchitis: Yes (04/2016) Hx COPD: Yes - CARDIOVASCULAR Hx Cardio Disorders: Yes Hx Hypertension: Yes (med good control) Comment:: high cholesterol - NEURO Hx Neuro Disorders: No - GI Hx GI Disorders: Yes Hx Abdominal Pain: Yes (rt abd mainly) Hx Reflux: Yes (heartburn & reflux) Hx Nausea/Vomiting: Yes (no vomiting) - Hx Genitourinary Disorders: No Comment:: hysterectomy - ENDOCRINE Hx Endocrine Disorders: Yes Hx Diabetes: Yes - MUSCULOSKELETAL Hx Musculoskeletal Disorders: No - PSYCH Hx Psych Problems: No - HEMATOLOGY/ONCOLOGY Hx Hematology/Oncology Disorders: Yes Hx Anemia: Yes (before hysterectomy) Hx Blood Transfusions: Yes (1986) Hx Blood Transfusion Reaction: No Family Medical History Any Significant Family History?: Yes Hx Diabetes: Mother *Diabetes Comment: non insulin Hx Heart Disease: Father Hx HTN: Father Hx Stroke: Father H&P Meds/Allergies - Allergies Allergies: Allergies Allergy/AdvReac Type Severity Reaction Status Date / Time dextromethorphan HBr Allergy Severe SWELLING Unverified 01/12/19 10:03 [From NyQuil] OF THE FACE diphenhydramine HCl Allergy Severe ANAPHYLAXIS Unverified 01/12/19 10:03 [From Tylenol PM] doxycycline Allergy Severe DIFFICULTY Unverified 01/12/19 10:03 BREATHING doxylamine succinate Allergy Severe SWELLING Unverified 01/12/19 10:03 [From NyQuil] OF THE FACE pseudoephedrine HCl Allergy Severe SWELLING Unverified 01/12/19 10:03 [From DayQuil Sinus OF THE FACE Pressure/Pain] amoxicillin Allergy Intermediate RASH Unverified 01/12/19 10:03 azithromycin [From Zithromax] Allergy Intermediate hives Unverified 01/12/19 10:03 prednisone Allergy Intermediate ITCHING Unverified 01/12/19 10:03 trimethoprim [From Bactrim] Allergy Intermediate "worse Unverified 01/12/19 10:03 infection-doesn't help" cephalexin monohydrate Allergy Mild ITCHING Unverified 01/12/19 10:03 [From Keflex] lisinopril Allergy ITCHING Unverified 01/12/19 10:03 sulfamethoxazole Allergy HIVES Unverified 01/12/19 10:03 [From Bactrim] apple AdvReac Severe SWELLING Unverified 01/12/19 10:03 (GENERAL) levofloxacin [From Levaquin] AdvReac Severe VOMITING Unverified 01/12/19 10:03 diclofenac sodium AdvReac Intermediate leg Unverified 02/14/19 09:44 [From Voltaren] numbness lidocaine AdvReac Intermediate needle Unverified 01/12/19 10:27 sensation, hot flashes, mood swings clindamycin AdvReac NAUSEA Unverified 01/12/19 10:03 vinegar AdvReac Severe SWELLING Uncoded 08/24/16 15:57 (GENERAL) - Active Medications Active Medications: Current Medications Albuterol Sulfate (Albuterol Sulfate) 2.5 mg INH DAILY [facility] Albuterol Sulfate (Ventolin Hfa) 1 - 2 puff INH .EVERY 4-6 HOURS PRN PRN Reason: COUGH Sodium Chloride () 1,000 mls @ 100 mls/hr IV .Q10H PRN PRN Reason: LARGE VOLUME IV Ibuprofen (Motrin 400mg) 800 mg PO Q8H PRN PRN Reason: PAIN - MILD TO MODERATE (1-7) Verapamil HCl (Calan Sr) 240 mg PO QD [facility] Last Admin: 07/01/19 23:13 Dose: 240 mg Documented by: Physical Exam - Vital Signs Vital Signs: Vital Signs - Last 24 Hrs Temp Pulse Pulse Pulse Resp BP BP 07/02/19 06:00 97.9 F 73 18 121/71 07/01/19 23:48 97.6 F 83 18 122/73 07/01/19 22:05 98.3 F 98 H 18 129/70 07/01/19 21:00 20 07/01/19 20:07 98.5 F 102 H 20 117/69 07/01/19 18:23 100.6 F H 110 H 20 124/71 07/01/19 16:43 102.9 F H 110 H 20 141/82 Pulse Ox 07/02/19 06:00 96 07/01/19 23:48 97 07/01/19 22:05 96 07/01/19 21:00 07/01/19 20:07 96 07/01/19 18:23 95 07/01/19 16:43 95 - General General Appearance: Alert, Oriented x3, Cooperative, No acute distress Limitations: No limitations - Head Head exam: Atraumatic, Normocephalic, Normal inspection - Eye Eye exam: Normal appearance, PERRL, EOMI - ENT Throat exam: Normal inspection. negative: Tonsillar erythema, Tonsillar exudate - Neck Neck exam: Normal inspection, Full ROM. negative: Tenderness - Respiratory Respiratory exam: Normal lung sounds bilaterally. negative: Respiratory distress - Cardiovascular Cardiovascular Exam: Regular rate, Normal rhythm, Normal heart sounds - GI/Abdominal GI/Abdominal exam: Soft, Normal bowel sounds, Tenderness (right upper quad tender) - Extremities Extremities exam: Normal inspection, Full ROM, Normal capillary refill. negative: Tenderness - Back Back exam: Reports: Other (chronic neck pain and why she takes norco) - Neurological Neurological exam: Alert, Normal gait. negative: Abnormal gait, Motor sensory deficit - Psychiatric Psychiatric exam: negative: Anxious Results - Labs Result Diagrams: 07/02/19 06:35 07/02/19 06:35 Labs Last 24 Hours: Laboratory Results - last 24 hr 07/01/19 07/01/19 07/01/19 17:00 17:00 17:00 WBC 6.9 RBC 4.54 Hgb 12.8 Hct 40.0 MCV 88.1 MCH 28.2 MCHC 32.0 RDW 13.4 Plt Count 228 MPV 10.3 Neutrophils % 87.0 H Band Neutrophils % 0.0 Lymphocytes % 6.6 L Monocytes % 6.3 Eosinophils % 0.1 Basophils % 0.3 Absolute Neutrophils 5.96 Lymphocytes 8.0 L Monocytes 5.0 Basophils 0.0 Platelet Estimate RBC Morphology Eosinophil Count 0.0 PT INR APTT Sodium 138 Potassium 3.2 L Chloride 94 L Carbon Dioxide 26.0 Anion Gap 18.0 H BUN 14 Creatinine 0.7 Estimated GFR > 60 Random Glucose 130 H Calcium 9.4 Total Bilirubin 1.30 H Direct Bilirubin 0.7 H AST 2151 H ALT 1456 H Alkaline Phosphatase 180 H Total Protein 7.7 Albumin 4.5 Lipase Acetaminophen Monoscreen Influenza Type A Ag Positive H Influenza Type B Ag Negative 07/01/19 07/01/19 07/01/19 17:42 17:42 18:48 WBC RBC Hgb Hct MCV MCH MCHC RDW Plt Count MPV Neutrophils % Band Neutrophils % Lymphocytes % Monocytes % Eosinophils % Basophils % Absolute Neutrophils Lymphocytes Monocytes Basophils Platelet Estimate RBC Morphology Eosinophil Count PT 10.2 INR 1.0 APTT 22.2 L Sodium Potassium Chloride Carbon Dioxide Anion Gap BUN Creatinine Estimated GFR Random Glucose Calcium Total Bilirubin Direct Bilirubin AST ALT Alkaline Phosphatase Total Protein Albumin Lipase Acetaminophen < 5.0 L Monoscreen Negative Influenza Type A Ag Influenza Type B Ag 07/02/19 07/02/19 07/02/19 00:05 06:35 06:35 WBC 4.8 RBC 4.41 Hgb 12.3 Hct 39.2 MCV 88.9 MCH 27.9 MCHC 31.4 L RDW 13.6 Plt Count 198 MPV 10.4 Neutrophils % 79.0 Band Neutrophils % 2.0 Lymphocytes % Monocytes % Eosinophils % Not Reportable Basophils % Not Reportable Absolute Neutrophils 4.00 Lymphocytes 8.0 L Monocytes 10.0 H Basophils Platelet Estimate Normal RBC Morphology Normal Eosinophil Count 1.0 PT INR APTT Sodium 144 Potassium 4.1 Chloride 105 Carbon Dioxide 29.0 Anion Gap 10.0 BUN 11 Creatinine 0.6 Estimated GFR > 60 Random Glucose 100 Calcium 8.9 Total Bilirubin 0.90 0.90 Direct Bilirubin 0.3 0.3 AST 948 H 556 H ALT 1107 H 960 H Alkaline Phosphatase 154 H 147 H Total Protein 6.6 6.6 Albumin 3.8 L 3.9 L Lipase Acetaminophen Monoscreen Influenza Type A Ag Influenza Type B Ag 07/02/19 07/02/19 06:35 06:35 WBC RBC Hgb Hct MCV MCH MCHC RDW Plt Count MPV Neutrophils % Band Neutrophils % Lymphocytes % Monocytes % Eosinophils % Basophils % Absolute Neutrophils Lymphocytes Monocytes Basophils Platelet Estimate RBC Morphology Eosinophil Count PT 10.9 INR 1.1 APTT Sodium Potassium Chloride Carbon Dioxide Anion Gap BUN Creatinine Estimated GFR Random Glucose Calcium Total Bilirubin Direct Bilirubin AST ALT Alkaline Phosphatase Total Protein Albumin Lipase 21 Acetaminophen Monoscreen Influenza Type A Ag Influenza Type B Ag VTE H&P Assessment - Risk for VTE Risk for VTE: Yes Risk Level: Low Risk Assessment Date: 07/02/19 Risk Assessment Time: 08:55 VTE Orders Placed or Will Be Placed: No VTE Reason for No Prophylaxis: Not Indicated (liver hepatitis and risk of bleedi ng high) Plan - Inpatient Certification Inpatient Certification: Admit to inpatient care: Based on my medical assessment, after consideration of patient's risk factors (age, co-morbidities and patient presenting symptoms and acuity), I expect that this patient will remain in the hospital greater than or equal to two midnights and that the services needed warrant inpatient care because: Patient Risk Factors: [] Estimated length of stay: [] The patient may reasonably be expected to be discharged or transferred to a hospital within 96 hours after admission to [facility]. Services needed: [] Post hospital care (if known): [] I certify that my determination is in accordance with my understanding of Medicare requirements for reasonable and necessary inpatient services. - Detailed Diagnosis and Plan (1) Hepatitis Current Visit: Yes Status: Acute Base Code: K75.9 - INFLAMMATORY LIVER DISEASE, UNSPECIFIED Priority: High (2) Influenza Current Visit: Yes Status: Acute Base Code: J11.1 - FLU DUE TO UNIDENTIFIED INFLUENZA VIRUS W OTH RESP MANIFEST Priority: High (3) Elevated liver enzymes Current Visit: Yes Status: Acute Base Code: R74.8 - ABNORMAL LEVELS OF OTHER SERUM ENZYMES Priority: High (4) Hypercholesteremia Current Visit: Yes Status: Acute Base Code: E78.00 - PURE HYPERCHOLESTEROLEMIA, UNSPECIFIED Priority: Medium (5) Hypertension Current Visit: Yes Status: Acute Base Code: I10 - ESSENTIAL (PRIMARY) HYPERTENSION Priority: Medium (6) GERD (gastroesophageal reflux disease) Current Visit: Yes Status: Acute Base Code: K21.9 - GASTRO-ESOPHAGEAL REFLUX DISEASE WITHOUT ESOPHAGITIS Priority: Medium (7) Osteoarthritis of left hip Current Visit: Yes Status: Acute Base Code: M16.12 - UNILATERAL PRIMARY OSTEOARTHRITIS, LEFT HIP Priority: Medium - Disposition follow up with Dr Ko in 4 days GI consult will be set up outpatient for elevated liver enzymes off work 6 days because of influenza A stop atorvastatin No tylenol and stop norco till liver heals stop zantac decrease metformin to one pill a day because that goes through the liver too. continue the rest of her meds hepatitis testing is pending
--- NOTE | 2019-07-02 09:09 | Discharge Summary ---
Providers Discharge Summary Date: 07/02/19 Date of admission: 07/01/19 19:40 Expected Date of Discharge: 07/02/19 Attending physician: Sid Merino Primary care physician: JOSE DOTY M.D. Physical Exam - Vital Signs Vital Signs: Vital Signs - Last 24 Hrs Temp Pulse Pulse Pulse Resp BP BP 07/02/19 08:53 18 07/02/19 06:00 97.9 F 73 18 121/71 07/01/19 23:48 97.6 F 83 18 122/73 07/01/19 22:05 98.3 F 98 H 18 129/70 07/01/19 21:00 20 07/01/19 20:07 98.5 F 102 H 20 117/69 07/01/19 18:23 100.6 F H 110 H 20 124/71 07/01/19 16:43 102.9 F H 110 H 20 141/82 Pulse Ox 07/02/19 08:53 07/02/19 06:00 96 07/01/19 23:48 97 07/01/19 22:05 96 07/01/19 21:00 07/01/19 20:07 96 07/01/19 18:23 95 07/01/19 16:43 95 - General General Appearance: Alert, Oriented x3, Cooperative, No acute distress Limitations: No limitations - Head Head exam: Atraumatic, Normocephalic, Normal inspection Head exam detail: negative: Abrasion, Contusion - Eye Eye exam: Normal appearance, PERRL, EOMI Pupils: Normal accommodation - ENT ENT exam: Normal exam, Mucous membranes moist, Normal external ear exam, Normal orophraynx, TM's normal bilaterally Ear exam: Normal external inspection. negative: External canal tenderness Nasal Exam: Normal inspection. negative: Discharge, Sinus tenderness Mouth exam: Normal external inspection, Tongue normal Teeth exam: Normal inspection. negative: Dental caries Throat exam: Normal inspection. negative: Tonsillar erythema, Tonsillar exudate - Neck Neck exam: Normal inspection, Full ROM. negative: Tenderness - Respiratory Respiratory exam: Normal lung sounds bilaterally. negative: Respiratory distress - Cardiovascular Cardiovascular Exam: Regular rate, Normal rhythm, Normal heart sounds - GI/Abdominal GI/Abdominal exam: Soft, Normal bowel sounds, Tenderness (right upper quad tender) - Rectal Rectal exam: Deferred - exam: Deferred - Extremities Extremities exam: Normal inspection, Full ROM, Normal capillary refill. negative: Tenderness - Back Back exam: Reports: Other (chronic neck pain and why she takes norco) - Neurological Neurological exam: Alert, Normal gait. negative: Abnormal gait, Motor sensory deficit - Psychiatric Psychiatric exam: negative: Anxious - Skin Skin exam: Dry, Intact, Normal color, Warm Hospitalization - Hospitalization Admission Diagnosis: 1. Acute Influenza with elevated liver enzymes. - Problem List/Discharge Diagnosis (1) Hepatitis Current Visit: Yes Status: Acute Base Code: K75.9 - INFLAMMATORY LIVER DISEASE, UNSPECIFIED (2) Influenza Current Visit: Yes Status: Acute Base Code: J11.1 - FLU DUE TO UNIDENTIFIED INFLUENZA VIRUS W OTH RESP MANIFEST (3) Elevated liver enzymes Current Visit: Yes Status: Acute Base Code: R74.8 - ABNORMAL LEVELS OF OTHER SERUM ENZYMES (4) Hypercholesteremia Current Visit: Yes Status: Acute Base Code: E78.00 - PURE HYPERCHOLESTEROLEMIA, UNSPECIFIED (5) Hypertension Current Visit: Yes Status: Acute Base Code: I10 - ESSENTIAL (PRIMARY) HYPERTENSION (6) GERD (gastroesophageal reflux disease) Current Visit: Yes Status: Acute Base Code: K21.9 - GASTRO-ESOPHAGEAL REFLUX DISEASE WITHOUT ESOPHAGITIS (7) Osteoarthritis of left hip Current Visit: Yes Status: Acute Base Code: M16.12 - UNILATERAL PRIMARY OSTEOARTHRITIS, LEFT HIP - Disposition follow up with Dr Ko in 4 days GI consult will be set up outpatient for elevated liver enzymes off work 6 days because of influenza A stop atorvastatin No tylenol and stop norco till liver heals stop zantac decrease metformin to one pill a day because that goes through the liver too. continue the rest of her meds hepatitis testing is pending - Hospitalization Course Disposition: Home, Self-Care Hospital Course: patient came into the ED for a cough and vomiting and abdomin pain and her liver enzymes were tabby high and she was admitted to make sure they didn't go up higher and she is currently not vomiting and eating food. She is still coughing from the influenze A. Her liver enzymes are coming down but this needs to be followed and it could be from the influenza or possibly the atorvastatin so will stop that and stopped ericka other meds that may effect the liver so stopped zantac tylenol and norco because it has tylenol in it and reduced the metformin to 850 to once a day. Procedures: Imaging and X-Rays 07/01/19 16:51 CHEST 2 VIEWS [RAD] Stat 07/01/19 17:46 ABDOMEN/PELVIS WO CONTRAST [CT] Stat Abnormal Labs: Abnormal Lab Results 07/01/19 07/01/19 07/01/19 Range/Units 17:00 17:00 17:00 MCHC (32-36) g/dl Neutrophils % 87.0 H (47-80) % Lymphocytes % 6.6 L (16-45) % Lymphocytes 8.0 L (16-45) % Monocytes (0-9) % APTT (24.5-39.1) SECONDS Potassium 3.2 L (3.4-4.5) mmol/L Chloride 94 L (98-107) mmol/L Anion Gap 18.0 H (7-16) Random Glucose 130 H (74-109) mg/dL Total Bilirubin 1.30 H (0.2-1.0) mg/dL Direct Bilirubin 0.7 H (0-0.3) mg/dL AST 2151 H (10.0-35.0) U/L ALT 1456 H (<33) U/L Alkaline Phosphatase 180 H (35-104) U/L Albumin (4.0-5.0) g/dL Acetaminophen (10.0-30.0) ug/mL Influenza Type A Ag Positive H (NEGATIVE) 07/01/19 07/01/19 07/02/19 Range/Units 17:42 17:42 00:05 MCHC (32-36) g/dl Neutrophils % (47-80) % Lymphocytes % (16-45) % Lymphocytes (16-45) % Monocytes (0-9) % APTT 22.2 L (24.5-39.1) SECONDS Potassium (3.4-4.5) mmol/L Chloride (98-107) mmol/L Anion Gap (7-16) Random Glucose (74-109) mg/dL Total Bilirubin (0.2-1.0) mg/dL Direct Bilirubin (0-0.3) mg/dL AST 948 H (10.0-35.0) U/L ALT 1107 H (<33) U/L Alkaline Phosphatase 154 H (35-104) U/L Albumin 3.8 L (4.0-5.0) g/dL Acetaminophen < 5.0 L (10.0-30.0) ug/mL Influenza Type A Ag (NEGATIVE) 07/02/19 07/02/19 Range/Units 06:35 06:35 MCHC 31.4 L (32-36) g/dl Neutrophils % (47-80) % Lymphocytes % (16-45) % Lymphocytes 8.0 L (16-45) % Monocytes 10.0 H (0-9) % APTT (24.5-39.1) SECONDS Potassium (3.4-4.5) mmol/L Chloride (98-107) mmol/L Anion Gap (7-16) Random Glucose (74-109) mg/dL Total Bilirubin (0.2-1.0) mg/dL Direct Bilirubin (0-0.3) mg/dL AST 556 H (10.0-35.0) U/L ALT 960 H (<33) U/L Alkaline Phosphatase 147 H (35-104) U/L Albumin 3.9 L (4.0-5.0) g/dL Acetaminophen (10.0-30.0) ug/mL Influenza Type A Ag (NEGATIVE) Condition at Discharge: (2) Stable Discharge Diagnosis: influenza A and hepatitis and elevated liver enzymes VTE Discharge VTE Reason For No Overlap Therapy: Not Indicated Discharge Medications - Discharge Medications Home Medications: Ambulatory Orders Multivitamin [Multi-Vitamin Daily] 1 each PO DAILY 08/08/17 [Last Taken 08/08/17] Cholecalciferol (Vitamin D3) [Vitamin D3] 1,000 unit PO DAILY cap 02/08/18 [Last Taken Unknown] Discharge Plan - Discharge Instructions Activity at Discharge: Increase Activity as Tolerated Diet at Discharge: Diabetic Diet Additional Instructions: follow up with Dr Ko in 4 days GI consult will be set up outpatient for elevated liver enzymes off work 6 days because of influenza A stop atorvastatin No tylenol and stop norco till liver heals stop zantac decrease metformin to one pill a day because that goes through the liver too. continue the rest of her meds hepatitis testing is pending Quality Measures - Quality Measures Quality Measures: Documentation of Current Medications in Medical Record, Screening for High Blood Pressure and F/U Documented - Current Medications Quality Measure: Measure #130: Documentation of Current Medications Documentation of Current Medications: <Current Medications Documented/Reviewed> [[id number]] - Blood Pressure Screening Quality Measure: Screening for High Blood Pressure and Follow-Up Documented Does Patient Have Any of the Following: Active Dx of HTN Blood Pressure Classification: Pre-Hypertensive BP Reading Systolic Measurement: 141 Diastolic Measurement: 82 Screening for High Blood Pressure: Patient Exclusion, Hx of HTN [[id number]] - Elder Abuse Suspicion Index EASI Reference Information: Davina VORA, Angelica Chavez, Arnulfo Oleary, Jovanna Salazar.Development and validation of a tool to assist physicians identification of elder abuse: The Elder Abuse Suspicion Index (EASI ). Journal of Elder Abuse and Neglect, 2008; 20 (3): 276-300.
[2019-07-02] MEDS ORDERED: HYDROCHLOROTHIAZIDE 25 MG TABLET PO SCH (10:00)
[2019-07-02] MEDS ORDERED: PANTOPRAZOLE SODIUM IV 40 MG VIAL IV SCH (10:00)
[2019-07-02] MEDS ORDERED: ALBUTEROL (0.5% CONCENTRATED) 2.5 MG/0.5 ML VIAL.NEB INH SCH (10:00)
[2019-07-02] MEDS ORDERED: OSTELTAMIVIR 75 MG CAP PO SCH (10:00)
[2019-07-02 20:05] LABS: HEP A AB IGM Nonreactive (Nonreactive); HEPATITIS B CORE ANTIBODY,IGM Nonreactive (Nonreactive); HEPATITIS B SURFACE ANTIGEN Nonreactive (Nonreactive); HEPATITIS C VIRUS ANTIBODY Nonreactive (Nonreactive)
== END 2019-07-02 10:00 | disposition home or self-care (01) ==
LOC: ER 16:38 → INTOOBSV 19:40 → MEDSURG 19:40
PROVIDERS: ADMIT Emergency Medicine; ATTEND Emergency Medicine
DX: K75.9 Inflammatory liver disease, unspecified (principal); J11.1 Influenza due to unidentified influenza virus with other respiratory manifestations; R79.89 Other specified abnormal findings of blood chemistry; E78.00 Pure hypercholesterolemia, unspecified; M16.12 Unilateral primary osteoarthritis, left hip; E11.9 Type 2 diabetes mellitus without complications; J44.9 Chronic obstructive pulmonary disease, unspecified; I10 Essential (primary) hypertension; K21.9 Gastro-esophageal reflux disease without esophagitis; R42 Dizziness and giddiness
CPT/HCPCS: 71046; 74176; 80048; 80076; 80329; 83690; 85027; 85610; 85730; 86308; 87400; 96360; 96375; 99220; 99285; J2405; J7030